=== PATIENT | female | born 1950 | race Caucasian/White ===

== ENCOUNTER 2018-08-25 23:48 | Inpatient (IN) | payer OTHER ==
[~2018-08-25] VITALS: Ht 160 cm; Wt 57.6 kg
[2018-08-30] MEDS ORDERED: MEDROLPACK PO (09:39)
[2018-08-30] MEDS ORDERED: XOPENEX HFA15 GM IH (09:39)
[2018-08-30] MEDS ORDERED: CEFDINIR300 MG PO (09:39)
[2018-08-30] MEDS ORDERED: OSEL75CA PO (09:41)
== END 2018-08-30 12:32 | disposition home or self-care (01) | DRG 202 ==
LOC: ER 23:48 → MEDJ 08-26 14:40
PROVIDERS: ADMIT Internal Medicine
PROC: 3E0F7GC Introduction of Other Therapeutic Substance into Respiratory Tract, Via Natural or Artificial Opening (ICD-10-PCS; principal; 2018-08-26)
PROC: 4A033R1 Measurement of Arterial Saturation, Peripheral, Percutaneous Approach (ICD-10-PCS; 2018-08-26)
PROC: BB24ZZZ Computerized Tomography (CT Scan) of Bilateral Lungs (ICD-10-PCS; 2018-08-27)
PROC: B246ZZZ Ultrasonography of Right and Left Heart (ICD-10-PCS; 2018-08-27)
DX: J45.31 Mild persistent asthma with (acute) exacerbation (principal); J98.11 Atelectasis; J11.1 Influenza due to unidentified influenza virus with other respiratory manifestations; Z88.6 Allergy status to analgesic agent; Z88.1 Allergy status to other antibiotic agents; I10 Essential (primary) hypertension; E78.49 Other hyperlipidemia; R09.02 Hypoxemia